=== PATIENT | female | born 2005 | race Two or more races ===

== ENCOUNTER 2024-04-04 15:06 | Inpatient (IN) | payer OTHER ==
[~2024-04-04] VITALS: Ht 165.1 cm; Wt 59.4 kg
[2024-04-04] MEDS ORDERED: METFORMIN HCL500 M3 (15:12)
[2024-04-04] MEDS ORDERED: ZONEGRAN100 MG (15:13)
[2024-04-04] MEDS ORDERED: KEPPRA1000 MG (15:14)
--- NOTE | 2024-04-04 15:16 | NUR ---
PTE ALERAT Y ORIEBNTADA X3, SE MICHAEL S/V. PTE REFIERE QUE DESDE YASHIRA PRESENTA DOLOR ABDOMINAL. PTE REFIERE QUE NO MINA TENIDO VOMITOS. SE UBICA EN ALBERT PD.
[2024-04-04] MEDS ORDERED: 0.9 % SODIUM CHLORIDE 1,000 ML IV SCH ×2 (16:00→16:15)
[2024-04-04] MEDS ORDERED: FAMOTIDINE/PF 20 MG/2 ML VIAL ONE (16:00)
[2024-04-04] MEDS ORDERED: FAMOTIDINE/PF 20 MG/2 ML VIAL IV SCH ×2 (16:00→21:00)
--- NOTE | 2024-04-04 16:26 | NUR ---
PTE ALERTA Y ORIENTADA X3, EN COMPANIA DE MADRE QUIEN SE EDUCA SOBRE [place] MEDICO Y REFIERE ENTENDER. SE CANALIZA Y SE COLECTA MUESTRAS DE LAB BAJO MEDIDAS ASEPTICAS. SE ADMINISTRA MEDS DAVID ORDEN MEDICA Y NO PRESENTA REACCION. SE NOTIFICA SONO PENDIENTE Y SE HACE ENTREGA DE ENVASE PARA U/A Y U/C.
[2024-04-04 16:32] LABS: HEMATOCRIT 34.3 % (36.0-45.00); HEMOGLOBIN 11.8 g/dL (12.0-15.00); MEAN CELL VOLUME 84.2 fL (80.00-100.00); MEAN CORPUSCULAR HEMOGLOBIN 28.9 pg (27.00-32.0); MEAN CORPUSCULAR HGB CONC 34.3 g/dl (32.0-36.0); PLATELET COUNT 337 K/uL (150-450); RED BLOOD COUNT 4.08 M/uL (4.00-6.00); RED CELL DISTRIBUTION WIDTH 14.8 % (11.5-14.5)
[2024-04-04 17:36] LABS: ALBUMIN 4.1 gm/dL (3.4-5.0); BILIRUBIN TOTAL 0.17 mg/dL (0.3-1.2); CALCIUM 8.6 mg/dL (8.5-10.1); CREATININE SERUM 0.75 mg/dL (0.55-1.02); GFR 98.52; GLOBULINA 4.3 G/DL (2.4-3.5); POTASSIUM 3.42 mEq/L (3.5-5.1); TOTAL PROTEIN 8.4 gm/dL (6.4-8.2); TSH 0.571 uIU/mL (0.358-3.74)
[2024-04-04 18:32] LABS: URINE APPEARANCE Cloudy; URINE BILIRRUBIN Negative (NEGATIVE); URINE BLOOD Negative; URINE COLOR Yellow; URINE GLUCOSE Negative (NEGATIVE); URINE KETONE Negative (NEGATIVE); URINE LEUKOCYTE Small; URINE NITRATE Negative; URINE PROTEIN Trace (NEGATIVE)
[2024-04-04 18:36] LABS: URINE EPITHELIAL CELLS 54.7 uL (0.0-38.8); URINE RBC 2.9 uL (0.0-20.8); URINE WBC 76.8 uL (0.0-23.2)
[2024-04-04 18:45] LABS: URINE CAST 0.61 uL (0.0-1.40)
[2024-04-04] MEDS ORDERED: MetFORMIN HCL 500 MG TABLET PO SCH (20:28)
[2024-04-04] MEDS ORDERED: ONDANSETRON HCL 2 MG/ML VIAL IV PRN (20:30)
[2024-04-04] MEDS ORDERED: DEXTROSE 5 %-0.45 % SOD CHLORD 1,000 ML IV SCH (20:30)
[2024-04-04] MEDS ORDERED: OXCARBAZEPINE 600 MG PO SCH (20:31)
[2024-04-04] MEDS ORDERED: LEVETIRACETAM 1000 MG PO SCH (20:33)
[2024-04-04] MEDS ORDERED: ZONISAMIDE 100 MG PO SCH (20:34)
[2024-04-04] MEDS ORDERED: LEVOTHYROXINE SODIUM 50 MCG TABLET PO SCH (20:45)
[2024-04-04 21:01] VITALS: BP 107/71; O2SAT 100
[2024-04-04 21:02] VITALS: BP 107/71
[2024-04-05 00:42] VITALS: BP 105/64; O2SAT 99
[2024-04-05 06:39] LABS: HEMATOCRIT 28.7 % (36.0-45.00); HEMOGLOBIN 9.9 g/dL (12.0-15.00); MEAN CELL VOLUME 84.4 fL (80.00-100.00); MEAN CORPUSCULAR HEMOGLOBIN 29.1 pg (27.00-32.0); MEAN CORPUSCULAR HGB CONC 34.5 g/dl (32.0-36.0); PLATELET COUNT 259 K/uL (150-450); RED CELL DISTRIBUTION WIDTH 14.8 % (11.5-14.5)
[2024-04-05 07:03] LABS: ALBUMIN 3.3 gm/dL (3.4-5.0); ALKALINE PHOSPHATASE 80 U/L (50-136); ALT/SGPT 12 U/L (12-78); ANION GAP 9 (10.0-20.0); AST/SGOT 9 U/L (15-37); BLOOD UREA NITROGEN 6 mg/dL (7-18); BUN CREA RATIO 8 (7.0-25.0); CALCIUM 8.4 mg/dL (8.5-10.1); CARBON DIOXIDE 24 mEq/L (21-32); CHLORIDE 113 mmol/L (98-107); CREATININE SERUM 0.74 mg/dL (0.55-1.02); GFR 100.05; GLOBULINA 3.6 G/DL (2.4-3.5); GLUCOSE FASTING 95 mg/dL (65-100); OSMOLALITY SERUM 281 MOSM/KG (275-295); POTASSIUM 3.83 mEq/L (3.5-5.1); SODIUM 142 mmol/L (136-145); TOTAL PROTEIN 6.9 gm/dL (6.4-8.2)
[2024-04-05 07:06] LABS: BILIRUBIN TOTAL < 0.10 mg/dL (0.3-1.2)
[2024-04-05 07:07] LABS: C-REACTIVE PROTEIN 2.06 MG/DL (0.00-0.29)
[2024-04-05] MEDS ORDERED: ONDANSETRON HCL 2 MG/ML VIAL IV PRN (07:45)
[2024-04-05 08:30] VITALS: BP 105/66; O2SAT 100
[2024-04-05] MEDS ORDERED: DEXTROSE 5 %-0.45 % SOD CHLORD 1,000 ML IV SCH (09:00)
[2024-04-05] MEDS ORDERED: ACETAMINOPHEN 500 MG GEL..CAP PO PRN (09:45)
[2024-04-05] MEDS ORDERED: IBUprofen 100 MG/5 ML-120ML ML PO SCH (18:00)
[2024-04-05] MEDS ORDERED: BUPIVACAINE HCL 30 ML VIAL IJ ONE (18:30)
[2024-04-05] MEDS ORDERED: CEFAZOLIN SODIUM 1,000 MG VIAL IV ONE (18:30)
[2024-04-05] MEDS ORDERED: PATIENTS OWN MEDICATION (MEDICAMENTO EN PISO) PO SCH ×2 (19:00)
[2024-04-05] MEDS ORDERED: LevETIRAcetam 500 MG TAB. PO SCH (19:00)
[2024-04-05 20:31] VITALS: BP 105/63; O2SAT 99
[2024-04-05] MEDS ORDERED: SUGAMMADEX SODIUM 200 MG/2 ML VIAL IV ONE (23:00)
[2024-04-06 00:08] VITALS: BP 96/57; O2SAT 96
[2024-04-06] MEDS ORDERED: LEVOTHYROXINE SODIUM 50 MCG TABLET PO SCH (04:00)
[2024-04-06 08:58] VITALS: BP 100/50; O2SAT 99
[2024-04-06] MEDS ORDERED: MetFORMIN HCL 500 MG TABLET PO SCH (09:00)
[2024-04-06] MEDS ORDERED: IBUprofen 400 MG TABLET PO SCH (09:00)
[2024-04-06 12:06] VITALS: BP 90/54; O2SAT 100
[2024-04-06 16:00] VITALS: BP 86/48; O2SAT 100
[2024-04-06 20:00] VITALS: BP 97/55; O2SAT 100
[2024-04-07 00:55] VITALS: BP 90/59; O2SAT 100
[2024-04-07 08:00] VITALS: BP 101/59; O2SAT 100
[2024-04-07] MEDS ORDERED: NAPR500T14 PO (09:21)
== END 2024-04-07 10:29 | disposition home or self-care (01) | DRG 399 ==
LOC: EMR PED 15:08 → ER 15:08 → EMR PED 15:49 → PED 21:23
PROVIDERS: Emergency Medicine Pediatric Emergency Medicine; Surgery; ADMIT Emergency Medicine; ATTEND Emergency Medicine
PROC: BW4GZZZ Ultrasonography of Pelvic Region (ICD-10-PCS; 2024-04-04)
PROC: BW21YZZ Computerized Tomography (CT Scan) of Abdomen and Pelvis using Other Contrast (ICD-10-PCS; 2024-04-04)
PROC: 0DTJ4ZZ Resection of Appendix, Percutaneous Endoscopic Approach (ICD-10-PCS; principal; 2024-04-05 18:00)
DX: K35.80 Unspecified acute appendicitis (principal); D64.9 Anemia, unspecified; G40.909 Epilepsy, unspecified, not intractable, without status epilepticus; F79 Unspecified intellectual disabilities